=== PATIENT | female | born 1980 | race Caucasian/White ===

== ENCOUNTER → 2018-11-15 13:21 | Outpatient (POV) | payer OTHER, SELFPAY ==
[2018-11-15 13:37] VITALS: BP 129/68; PULSE 73; RESP 18; O2SAT 98
--- NOTE | 2018-11-16 07:51 | HMH.PMCON ---
Assessment and Plan (1) Degenerative joint disease (DJD) of lumbar spine Current visit: Yes Status: Chronic Category: Medical Code(s): M47.816 - Spondylosis without myelopathy or radiculopathy, lumbar region (2) Myofascial pain syndrome Current visit: Yes Status: Chronic Category: Medical Code(s): M79.18 - Myalgia, other site - Assessment and plan all Dx Assessment and Plan for all problems:: We will start by scheduling the patient for lumbar paraspinous trigger point injections. Patient has tried and failed other modalities of treatment. Patient is continuing a home stretching program. I believe it would be beneficial for the patient. I will follow-up with her after injections reassess her symptoms at that time. Dr. Garner has reviewed this note and agrees with this plan of care. This note was dictated using voice recognition software and may contain errors or omissions HPI - Data of Consult Consult date: 11/15/18 Requesting Physician: Yarelis Garcia APRN Primary Care Provider: Emmanuel Mar - Consult Narrative Reason for consult: Back pain History of present illness: Ms. Quevedo is a 38 year old female who presents today for consultation in regards to her back pain. Patient has increased pain with standing and walking she has decreased pain with rest and heating pad. Patient states is mostly in her lower back. Patient states is very focal. She rates her pain a 5 out of 10. Patient has tried and failed physical therapy. She is also on medications. Patient is currently on a Suboxone treatment clinic. Patient has a MRI with mild degeneration and mild facet arthropathy. On palpation patient does have notable trigger points lumbar paraspinous. CC: Yarelis Garcia APRN [facility] History I have reviewed the patient's past medical history: Yes Medical History: Reports:: Hyperlipidemia Other Surgeries: Yes: Tubal Ligation, Other (WISDOM TEETH, R ANKLE REPAIR) Amputation: No Fractures: Yes - *Social History Smoking Status: Never smoker Alcohol Intake: never Substance Use Type: prescription drug Last Used Substance: unknown *Occupational Status:: other Housing: house Household Members: other *Travel in the last 8 weeks: None - Psychiatric History Expresses thoughts of harming self/others: None Suicide Plan Description: No Plan Family Hx:: Unable to obtain Review of Systems - Review of Systems ROS General: no recent weight change, no fever, no sleep disturbances Respiratory: no cough, no shortness of air, no recurring pulmonary infections Cardiovascular/Peripheral Vascular: No chest pain, No palpitations, no edema, no shortness of breath. Gastrointestinal: no incontinence, normal bowel movements reported Genitourinary: no incontinence Musculoskeletal: Back pain myofascial pain Psychiatric: normal mood/ affect Neurological: [denies weakness in extremities], [denies balance issues] Meds Home Medications Medication Instructions Recorded Confirmed Type Atenolol [Atenolol 100mg Tab] 100 mg PO DAILY 11/15/18 11/15/18 History Buprenorphine HCl/Naloxone HCl 1 tab PO DAILY 11/15/18 11/15/18 History [Buprenorphin-Naloxon 8-2 mg Sl] Doxepin HCl [Sinequan 10mg capsule] 10 mg PO DAILY 11/15/18 11/15/18 History Omeprazole [Omeprazole 40mg 40 mg PO DAILY 11/15/18 11/15/18 History Capsule] Topiramate 50 mg PO BID 11/15/18 11/15/18 History Objective Vital signs: Pulse Resp BP Pulse Ox 73 18 129/68 98 11/15/18 13:37 11/15/18 13:37 11/15/18 13:37 11/15/18 13:37 Narrative: Physical Exam General: Alert and oriented x3, no acute distress, pleasant and cooperative, [on room air] Lungs: Resps E/U, Symmetrical chest expansion, Eyes: PERRL Musculoskeletal: Flexion and extension of lumbar spine somewhat guarded secondary to pain, deep tendon reflexes normal, strength in upper and lower extremities [5/5], no gait noted, palpable trigger p
--- NOTE | 2018-11-16 07:55 | P.CONS_ITS ---
Assessment and Plan (1) Degenerative joint disease (DJD) of lumbar spine Current visit: Yes Status: Chronic Category: Medical Code(s): M47.816 - Spondylosis without myelopathy or radiculopathy, lumbar region (2) Myofascial pain syndrome Current visit: Yes Status: Chronic Category: Medical Code(s): M79.18 - Myalgia, other site - Assessment and plan all Dx Assessment and Plan for all problems:: We will start by scheduling the patient for lumbar paraspinous trigger point injections. Patient has tried and failed other modalities of treatment. Patient is continuing a home stretching program. I believe it would be beneficial for the patient. I will follow-up with her after injections reassess her symptoms at that time. Dr. Garner has reviewed this note and agrees with this plan of care. This note was dictated using voice recognition software and may contain errors or omissions HPI - Data of Consult Consult date: 11/15/18 Requesting Physician: Yarelis Garcia APRN Primary Care Provider: Emmanuel Mar - Consult Narrative Reason for consult: Back pain History of present illness: Ms. Quevedo is a 38 year old female who presents today for consultation in regards to her back pain. Patient has increased pain with standing and walking she has decreased pain with rest and heating pad. Patient states is mostly in her lower back. Patient states is very focal. She rates her pain a 5 out of 10. Patient has tried and failed physical therapy. She is also on medications. Patient is currently on a Suboxone treatment clinic. Patient has a MRI with mild degeneration and mild facet arthropathy. On palpation patient does have notable trigger points lumbar paraspinous. CC: Yarelis Garcia APRN [facility] History I have reviewed the patient's past medical history: Yes Medical History: Reports:: Hyperlipidemia Other Surgeries: Yes: Tubal Ligation, Other (WISDOM TEETH, R ANKLE REPAIR) Amputation: No Fractures: Yes - *Social History Smoking Status: Never smoker Alcohol Intake: never Substance Use Type: prescription drug Last Used Substance: unknown *Occupational Status:: other Housing: house Household Members: other *Travel in the last 8 weeks: None - Psychiatric History Expresses thoughts of harming self/others: None Suicide Plan Description: No Plan Family Hx:: Unable to obtain Review of Systems - Review of Systems ROS General: no recent weight change, no fever, no sleep disturbances Respiratory: no cough, no shortness of air, no recurring pulmonary infections Cardiovascular/Peripheral Vascular: No chest pain, No palpitations, no edema, no shortness of breath. Gastrointestinal: no incontinence, normal bowel movements reported Genitourinary: no incontinence Musculoskeletal: Back pain myofascial pain Psychiatric: normal mood/ affect Neurological: [denies weakness in extremities], [denies balance issues] Meds Home Medications Medication Instructions Recorded Confirmed Type Atenolol [Atenolol 100mg Tab] 100 mg PO DAILY 11/15/18 11/15/18 History Buprenorphine HCl/Naloxone HCl 1 tab PO DAILY 11/15/18 11/15/18 History [Buprenorphin-Naloxon 8-2 mg Sl] Doxepin HCl [Sinequan 10mg capsule] 10 mg PO DAILY 11/15/18 11/15/18 History Omeprazole [Omeprazole 40mg 40 mg PO DAILY 11/15/18 11/15/18 History Capsule] Topiramate 50 mg PO BID 11/15/18 11/15/18 History Objective Vital s
== END ==
PROVIDERS: PCP Family Medicine; Visit Provider Clinical Nurse Specialist Family Health
DX: M47.816 Spondylosis without myelopathy or radiculopathy, lumbar region (principal); M79.18 Myalgia, other site
CPT/HCPCS: 99202

== ENCOUNTER → 2018-12-21 09:41 | Outpatient (POV) | payer OTHER, SELFPAY ==
[2018-12-21 09:45] VITALS: BP 154/52; PULSE 87; RESP 18; O2SAT 99; BMI 45.1
--- NOTE | 2018-12-21 10:21 | HMH.PAINSOAP ---
[facility] Pain Management SOAP Note Subjective:: Is a pleasant 38-year-old white female who presents today for follow-up after trigger point injections. Patient rates her pain a 0 out of 10 and states she is doing extremely well. She would like to follow-up as needed. ROS General: no recent weight change, no fever, no sleep disturbances Respiratory: no cough, no shortness of air, no recurring pulmonary infections Cardiovascular/Peripheral Vascular: No chest pain, No palpitations, no edema, no shortness of breath. Gastrointestinal: no incontinence, normal bowel movements reported Genitourinary: no incontinence Musculoskeletal: Myofascial pain at times Psychiatric: normal mood/ affect Neurological: [denies weakness in extremities], [denies balance issues] Objective:: Physical Exam General: Alert and oriented x3, no acute distress, pleasant and cooperative, [on room air] Lungs: Resps E/U, Symmetrical chest expansion, Eyes: PERRL Musculoskeletal: Flexion and extension of lumbar spine somewhat guarded secondary to pain, deep tendon reflexes normal, strength in upper and lower extremities [5/5], slightly antalgic gait noted Neurological: speech clear, acid conditioning worker equal, no gross sensory deficits Assessment:: Myofascial pain syndrome, degenerative disc disease lumbar spine Plan:: Patient will call us if she needs us. Patient states she overall she is doing well. Dr. Garner has reviewed this note and agrees with this plan of care. This note was dictated using voice recognition software and may contain errors or omissions
--- NOTE | 2018-12-21 10:24 | P.CONS_ITS ---
[facility] Pain Management SOAP Note Subjective:: Is a pleasant 38-year-old white female who presents today for follow-up after trigger point injections. Patient rates her pain a 0 out of 10 and states she is doing extremely well. She would like to follow-up as needed. ROS General: no recent weight change, no fever, no sleep disturbances Respiratory: no cough, no shortness of air, no recurring pulmonary infections Cardiovascular/Peripheral Vascular: No chest pain, No palpitations, no edema, no shortness of breath. Gastrointestinal: no incontinence, normal bowel movements reported Genitourinary: no incontinence Musculoskeletal: Myofascial pain at times Psychiatric: normal mood/ affect Neurological: [denies weakness in extremities], [denies balance issues] Objective:: Physical Exam General: Alert and oriented x3, no acute distress, pleasant and cooperative, [on room air] Lungs: Resps E/U, Symmetrical chest expansion, Eyes: PERRL Musculoskeletal: Flexion and extension of lumbar spine somewhat guarded secondary to pain, deep tendon reflexes normal, strength in upper and lower extremities [5/5], slightly antalgic gait noted Neurological: speech clear, clerk funeral detail equal, no gross sensory deficits Assessment:: Myofascial pain syndrome, degenerative disc disease lumbar spine Plan:: Patient will call us if she needs us. Patient states she overall she is doing well. Dr. Garner has reviewed this note and agrees with this plan of care. This note was dictated using voice recognition software and may contain errors or omissions
== END ==
PROVIDERS: Visit Provider Clinical Nurse Specialist Family Health
DX: M79.18 Myalgia, other site (principal); M51.36 Other intervertebral disc degeneration, lumbar region
CPT/HCPCS: 99212

== ENCOUNTER → 2020-01-02 10:21 | Outpatient (POV) | payer MEDICAID, SELFPAY ==
[2020-01-02 10:43] VITALS: BP 169/75; PULSE 79; RESP 18; TEMP 36.6; O2SAT 99; BMI 45.5
--- NOTE | 2020-01-03 08:16 | P.CONS_ITS ---
[facility] Pain Management SOAP Note Subjective:: Patient is a pleasant 39-year-old white female who we have not seen for quite some time. At her last visit she is following up after trigger point injections and was doing extremely well. She stated that she did well for several months until she was put on a new ADD medication. 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 She has constant numbness and tingling all over her body. She is had a nerve study showing demyelination. She rates her pain a 4 out of 10. She is learning to re-walk. She is on physical therapy and Occupational Therapy she is still being seen by neurologist. Patient is here to discuss options in regards to her pain management. She is on gabapentin 800 mg 4 times a day. ROS General: no recent weight change, no fever, no sleep disturbances Respiratory: no cough, no shortness of air, no recurring pulmonary infections Cardiovascular/Peripheral Vascular: No chest pain, No palpitations, no edema, no shortness of breath. Gastrointestinal: no new onset incontinence, normal bowel movements reported Genitourinary: no new onset incontinence Musculoskeletal: Generalized pain Psychiatric: normal mood/ affect, Neurological: Weakness in bilateral lower extremities numbness and tingling in all extremities Objective:: Physical Exam General: Alert and oriented x3, no acute distress, pleasant and cooperative, [on room air] Lungs: Resps E/U, Symmetrical chest expansion, Eyes: PERRL Musculoskeletal: Flexion and extension of lumbar spine somewhat guarded secondary to pain, deep tendon reflexes normal, strength in upper and lower extremities [5/5], [abnormal gait noted] Neurological: speech clear, medicaid billing specialist equal, decreased sensation to palpation bilateral lower extremities Assessment:: Chronic inflammatory demyelination polyneuropathy, myofascial pain Plan:: Patient and I discussed doing some trigger points in her low back. She is given see her neurologist prior to this to get approval. Patient I did also talk about supplementation of B vitamins. I discussed with her to talk in regards to this to her neurologist. I will follow-up with her and do trigger point injections in 2 weeks reassess her symptoms at that time she is been instructed to call the office if she has any issues prior to her next appointment. Dr. Garner has reviewed this note and agrees with this plan of care. This note was dictated using voice recognition software and may contain errors or omissions [facility] History I have reviewed the patient's past medical history: Yes Medical History: Reports:: Gastroesophageal Reflux Disease(GERD), Hyperlipidemia, Hypertension Denies:: Cancer, Diabetes Mellitus Type 1, Diabetes Mellitus Type 2, MRSA, Seizures *Have you ever received a pneumonia vaccine?: Yes *Have you received a flu vaccine this season?: Yes Other Medical History: Reports: Other (CIDP). Denies: Blood Transfusion Reaction Other Surgeries: Yes: Tubal Ligation, Other Amputation: No Fractures: Yes - *Social History Smoking Status: Former smoker Alcohol Intake: never *Occupational Status:: other Housing: house Household Members: other *Travel in the last 8 weeks: None Family Hx:: Unable to obtain
== END ==
PROVIDERS: PCP Nurse Practitioner Family; Visit Provider Clinical Nurse Specialist Family Health
DX: G61.81 Chronic inflammatory demyelinating polyneuritis (principal); M79.18 Myalgia, other site
CPT/HCPCS: 99212

== ENCOUNTER 2020-01-17 14:42 | Day surgery (SDC) | payer MEDICAID, SELFPAY ==
[2020-01-17 14:49] VITALS: BP 132/79; PULSE 89; RESP 18; TEMP 36.8; O2SAT 98; BMI 26.9
[2020-01-17 15:16] VITALS: BP 158/78; PULSE 85; RESP 18; O2SAT 98
[2020-01-17 15:18] VITALS: BP 145/78; PULSE 89; RESP 18; O2SAT 98
--- NOTE | 2020-01-17 15:20 | P.PCN_ITS ---
- Procedure Date: 01/17/20 Time: 15:20 Anesthesiologist:: Yarelis Garcia APRN Complications:: None Pre-procedure Diagnosis:: Myofascial pain syndrome Post-procedure Diagnosis:: Same Indications for Procedure:: Patient is a pleasant 39-year-old white female who presents today from myofascial pain and trigger points. Patient has done well with these in the past. She is had several months worth of issues secondary to an ADD medication that she took. She was hospitalized and went to occupational therapy and was also put in rehabilitation. Patient was tested for CIDP which came back negative. She is awaiting a specialist. Patient rates her pain a 5 out of 10.. physical Exam General: Alert and oriented x3, no acute distress, pleasant and cooperative, [on room air] Lungs: Resps E/U, Symmetrical chest expansion, Eyes: PERRL Musculoskeletal: Flexion and extension of lumbar and thoracic spine somewhat guarded secondary to pain, deep tendon reflexes normal, strength in upper and lower extremities [5/5], [abnormal gait noted] palpable trigger points bilateral lumbar paraspinous and thoracic paraspinous muscles Neurological: speech clear, supplier quality engineer equal, no gross sensory deficits Procedure Details:: Procedure: Informed consent was obtained and the risk and benefits of the procedure were explained to the patient. Patient was taken to the procedure room. The thoracic and lumbar paraspinous bilaterally was prepped using ChloraPrep as a cleansing solution. Trigger points were palpated and marked. Each of these trigger points were injected with 3 mL's of bupivacaine 0.25 and Depo-Medrol 10 mg. A total of 80 milligrams of Depo-Medrol was used for 8 trigger points. Bandages were placed over the injection sites. Patient tolerated the procedure well with no complications. Plan and Disposition:: I will see the patient back in 2 to 3 weeks reassess her symptoms at that time she has been instructed to call the office if she has any issues prior to her next appointment. We also try to get [facility] records for her. Dr. Garner has reviewed this note and agrees with this plan of care. This note was dictated using voice recognition software and may contain errors or omissions
[2020-01-17 15:28] VITALS: BP 143/69; PULSE 85; RESP 20; O2SAT 98
== END 2020-01-17 15:30 | disposition home or self-care (01) ==
LOC: SC.PAINP 14:43
PROVIDERS: PCP Nurse Practitioner Family; Visit Provider Clinical Nurse Specialist Family Health
DX: M79.18 Myalgia, other site (principal); Z88.8 Allergy status to other drugs, medicaments and biological substances; Z88.5 Allergy status to narcotic agent; I10 Essential (primary) hypertension; J45.909 Unspecified asthma, uncomplicated; F41.9 Anxiety disorder, unspecified; F32.9 Major depressive disorder, single episode, unspecified; M47.816 Spondylosis without myelopathy or radiculopathy, lumbar region; Z79.899 Other long term (current) drug therapy
CPT/HCPCS: 20553; J1030

== ENCOUNTER → 2020-01-30 15:13 | Outpatient (POV) | payer MEDICAID, SELFPAY ==
[2020-01-30 15:49] VITALS: BP 125/85; PULSE 77; RESP 18; O2SAT 98; BMI 44.6
--- NOTE | 2020-01-30 16:04 | P.CONS_ITS ---
[facility] Pain Management SOAP Note Subjective:: Patient is a pleasant 39-year-old white female who presents today for follow-up after thoracic and lumbar paraspinal trigger point injections. Patient is interested in repeating this given the efficacy. She rates her pain today at 3 out of 10. She is gotten 80% relief of her symptomology with her injections. We also discussed utilizing a TENS unit we will write her a prescription for that today as well. ROS General: no recent weight change, no fever, no sleep disturbances Respiratory: no cough, no shortness of air, no recurring pulmonary infections Cardiovascular/Peripheral Vascular: No chest pain, No palpitations, no edema, no shortness of breath. Gastrointestinal: no new onset incontinence, normal bowel movements reported Genitourinary: no new onset incontinence Musculoskeletal: Myofascial pain Psychiatric: normal mood/ affect Neurological: [denies new onset weakness in extremities], [denies new onset balance issues] Objective:: Physical Exam General: Alert and oriented x3, no acute distress, pleasant and cooperative, [on room air] Lungs: Resps E/U, Symmetrical chest expansion, Eyes: PERRL Musculoskeletal: Flexion and extension of lumbar spine somewhat guarded secondary to pain, deep tendon reflexes normal, strength in upper and lower extremities [5/5], [abnormal gait noted] Neurological: speech clear, concept artist equal, no gross sensory deficits Assessment:: Myofascial pain syndrome Plan:: We will get her approved for lumbar paraspinal trigger point injections. Bilaterally I will follow-up with her after this reassess her symptoms at that time she has been instructed to call the office if she has any issues prior to her next appointment. Dr. Garner has reviewed this note and agrees with this plan of care. This note was dictated using voice recognition software and may c ontain errors or omissions [facility] History I have reviewed the patient's past medical history: Yes Medical History: Reports:: Gastroesophageal Reflux Disease(GERD), Hyperlipidemia, Hypertension Denies:: Cancer, Diabetes Mellitus Type 1, Diabetes Mellitus Type 2, MRSA, Seizures *Have you ever received a pneumonia vaccine?: Yes *Have you received a flu vaccine this season?: Yes Other Medical History: Reports: Other (CIDP). Denies: Blood Transfusion Reaction Other Surgeries: Yes: Tubal Ligation, Other Amputation: No Fractures: Yes - *Social History Smoking Status: Former smoker Alcohol Intake: never *Occupational Status:: other Housing: house Household Members: other *Travel in the last 8 weeks: None Family Hx:: Unable to obtain
== END ==
PROVIDERS: PCP Nurse Practitioner Family; Visit Provider Clinical Nurse Specialist Family Health
DX: M79.18 Myalgia, other site (principal)
CPT/HCPCS: 99212

== ENCOUNTER 2020-02-24 09:46 | Day surgery (SDC) | payer MEDICAID, SELFPAY ==
[2020-02-24 10:13] VITALS: BP 139/87; PULSE 73; RESP 18; TEMP 36.7; O2SAT 96; BMI 30.9
[2020-02-24 11:04] VITALS: BP 140/87; PULSE 89; RESP 18
[2020-02-24 11:05] VITALS: BP 142/88; PULSE 79; RESP 18; O2SAT 98
--- NOTE | 2020-02-24 11:11 | HMH.PMPROC ---
- Procedure Date: 02/24/20 Time: 11:11 Anesthesiologist:: Urban Garner MD Complications:: None Pre-procedure Diagnosis:: Myofascial pain in the low back with lumbago and degenerative disc disease of lumbar spine Post-procedure Diagnosis:: Same Indications for Procedure:: This patient is a pleasant 39-year-old white female who we are treating for mid back pain and low back pain with myofascial pain and trigger points. She is done well with trigger point injections to the thoracic paraspinous muscles and lumbar paraspinous muscles in the past. She does have some increasing low back pain. We will do repeat trigger point injections to the lumbar paraspinous muscles today. Procedure Details:: Trigger point injections x8 to bilateral lumbar paraspinous muscles. Informed consent was obtained the risk and benefits of the procedure were explained to the patient. Patient was taken to the procedure room. The back was prepped using ChloraPrep. Trigger points were palpated marked. Each of these trigger points were injected with bupivacaine 0.25% 3 mils and Depo-Medrol 10 mg. A total of 8 trigger points, 4 in each side were injected using 80 mg Depo-Medrol. Patient tolerated the procedure well with no complications. Plan and Disposition:: We will follow-up with her in 2 weeks. Will reevaluate symptoms at that time.
[2020-02-24 11:20] VITALS: BP 133/86; PULSE 67; RESP 18; O2SAT 96
== END 2020-02-24 11:21 | disposition home or self-care (01) ==
LOC: SC.PAINP 09:47
PROVIDERS: PCP Nurse Practitioner Family; Visit Provider Anesthesiology
DX: M79.18 Myalgia, other site (principal); M51.16 Intervertebral disc disorders with radiculopathy, lumbar region; I10 Essential (primary) hypertension; K21.9 Gastro-esophageal reflux disease without esophagitis; Z88.5 Allergy status to narcotic agent; Z88.8 Allergy status to other drugs, medicaments and biological substances; J45.909 Unspecified asthma, uncomplicated; F41.9 Anxiety disorder, unspecified; F32.9 Major depressive disorder, single episode, unspecified; Z79.899 Other long term (current) drug therapy
CPT/HCPCS: 20552; J1030

== ENCOUNTER 2020-06-16 16:25 | Emergency (ER) | payer MEDICAID, SELFPAY ==
[2020-06-16 17:00] VITALS: BP 132/72; PULSE 75; RESP 20; TEMP 36.7; O2SAT 100; BMI 41.6
--- NOTE | 2020-06-16 17:04 | HMH.EDUTC ---
[facility] [place] Impression: Exposure to COVID-19 virus, Diarrhea Disposition: Home, Self-Care Condition on Discharge: Good Instructions: Diarrhea, Preventing the Spread of Coronavirus Discharge Instructions, DI for Viral Syndrome Additional Instructions: *Monitor Temp, Over the counter Motrin or Tylenol as directed/as needed Tylenol every 4 hours and Motrin every 6 hours (as long as your family doctor has told you that you can take it) for fever or pain. and straight to ER if unable to lower temp less than 101.0 after medication given *Warm salt water gargles may help to soothe the throat *Throat Lozenges *Warm fluids like tea with honey may help to soothe the throat *Sleep elevated *Humidifier/Vaporizer *Flonase 2 sprays in each nostril daily but be aware that it may take 2-3 days before you notice improvement Follow up IMMEDIATELY for new or worsening symptoms or no Noticeable improvement over the next 48-72 hours. 911 for difficulty breathing or swallowing You was tested for today for COVID19 your test result should be back in the next 24-48 hours, you may call to the [facility] tomorrow to see if your test results are back and the result [phone] You was given a handout with instructions for Self Quarantine and Self isolation for while you wait on test results and what to do if they are positive If you are positive the Health Dept will be contacting you also Referrals: Suzanne Coles PA [Primary Care Provider] - As needed Forms: Work/School Release Time of Disposition: 17:07 Medical Decision Making - Taurus Inquiry Pt receiving controlled substance: No Taurus was queried for this patient: No Vital Signs: 06/16/20 17:00 Temperature 98.0 F Temperature Source Oral Pulse Rate [Radial] 75 Respiratory Rate 20 Blood Pressure [Right Arm] 132/72 Blood Pressure Mean [Right Arm] 92 Blood Pressure Source [Right Arm] Automatic Cuff Blood Pressure Position [Right Arm] Sitting 02 Sat by Pulse Oximetry 100 Oxygen Delivery Method Room Air Orders (Tests/Meds): ORDERS Category Date Time Status Covid-19 Nasal PCR ([facility]) Routine Lab 06/16/20 16:40 [place] [facility] [place] - General Stated complaint: sore throat nausea diarhea Time Seen by Provider: 11/14/20 17:04 Mode of Arrival: Ambulatory Source of Information: Patient Limitations: No Limitations Description of Symptoms (Recalled from Triage Doc. by RN): COVID TEST HEENT Symptoms (Recalled from RN notes): No Resp Symptoms (Recalled from RN notes): No Skin Symptoms (Recalled from RN notes): No MS Symptoms (Recalled from RN notes): No Functional Status (Recalled from RN notes): WNL - History of Present Illness Provider Complaint: Patient states that she was notified by her daughters recovery coach that [facility] and she was exposed also States that she had a scratchy throat, drainage and diarrhea States that she has been in quarantine and wanted to get tested - Related Data Home Medications Medication Instructions Recorded Confirmed Buprenorphine HCl/Naloxone HCl 1 tab PO DAILY 11/15/18 02/24/20 [Buprenorphin-Naloxon 8-2 mg Sl] Doxepin HCl [Sinequan 10mg capsule] 10 mg PO DAILY 11/15/18 02/24/20 Omeprazole [Omeprazole 40mg 40 mg PO DAILY 11/15/18 02/24/20 Capsule] atenoloL [Atenolol 100mg Tab] 100 mg PO DAILY 11/15/18 02/24/20 dextroamphetamine-amphetamine ER 30 mg PO DAILY 12/21/19 02/24/20 30 mg 24hr capsule,extend release diclofenac sodium 75 mg 75 mg PO BID 12/21/19 02/24/20 tablet,delayed release furosemide 20 mg tablet 20 mg PO DAILY 12/21/19 02/24/20 gabapentin 800 mg tablet 800 mg PO TID 12/21/19 02/24/20 ibuprofen 800 mg tablet 800 mg PO TID 12/21/19 02/24/20 loratadine 10 mg tablet 10 mg PO DAILY 12/21/19 02/24/20 nortriptyline 10 mg capsule 10 mg PO QHS 12/21/19 02/24/20 potassium chloride 8 mEq 8 meq PO DAILY 12/21/19 02/24/20 capsule,extended release pramoxine 1 % lotion 1 ap
[2020-06-16 17:11] VITALS: BP 132/72; PULSE 75; RESP 20; TEMP 36.7; O2SAT 100
== END 2020-06-16 17:27 | disposition home or self-care (01) ==
PROVIDERS: Emergency Provider Nurse Practitioner; PCP Nurse Practitioner Family
DX: Z20.828 Contact with and (suspected) exposure to other viral communicable diseases (principal); I10 Essential (primary) hypertension; K21.9 Gastro-esophageal reflux disease without esophagitis; E78.5 Hyperlipidemia, unspecified; Z79.899 Other long term (current) drug therapy
CPT/HCPCS: 99201; U0003

== ENCOUNTER 2021-04-01 15:01 | Emergency (ER) | payer MEDICAID, SELFPAY ==
[2021-04-01 15:02] VITALS: BP 153/75; PULSE 89; RESP 18; TEMP 37.2; O2SAT 100; BMI 35.0
--- NOTE | 2021-04-01 15:48 | XR_ITS ---
PROCEDURE: XR KUB CLINICAL INDICATION: LUQ abd pain COMPARISON: No exams were available for comparison FINDINGS: Nonspecific bowel gas pattern. No evidence of intestinal obstruction. There are 3 opacities overlying the right mid abdominal region possibly due to undigested medication or soft tissue calcifications. No acute bony anomalies. IMPRESSION: No acute findings. Dictated by: Devin Snow MD 04/01/2021 16:20 Devin Snow MD in [place] 04/01/2021 16:20
--- NOTE | 2021-04-01 15:48 | XR_ITS ---
PROCEDURE: XR CHEST PORTABLE CLINICAL HISTORY: Chest pain, covid concerns COMPARISON: No exams were available for comparison FINDINGS: The cardiomediastinal silhouette and pulmonary vascularity are within normal limits. The lungs are clear without infiltrates, suspicious nodules, or pleural effusions. No acute bony abnormalities. IMPRESSION: No acute findings. Dictated by: Devin Snow MD 04/01/2021 16:19 Devin Snow MD in [place] 04/01/2021 16:19
--- NOTE | 2021-04-01 15:50 | HMH.EDGENADL ---
ED Disposition Clinical Impression: Abdominal pain affecting Disposition: Home, Self-Care Condition on Discharge: Good Instructions: DI for Acute Abdominal Pain Referrals: Suzanne Coles PA [Primary Care Provider] - - Critical Care Critical Care Time: No Attestation: On 04/01/21, the high probability of a clinically significant, sudden or life threatening deterioration of the following system(s) required my full and direct attention, intervention and personal management. The time I documented below is in addition to time spent performing reported procedures but includes the following listed in this critical care notation. Medical Decision Making - Medical Records Medical records reviewed: Yes: I reviewed the patient's medical records. - Taurus Inquiry Pt receiving controlled substance: No Vital Signs: 04/01/21 15:02 04/01/21 19:29 Temperature 99.0 F 98.7 F Temperature Source Oral Pulse Rate 81 Pulse Rate [Left Radial] 89 Respiratory Rate 18 18 Blood Pressure 141/72 H Blood Pressure [Right Arm] 153/75 H Blood Pressure Mean [Right Arm] 101 Blood Pressure Source [Right Arm] Automatic Cuff Blood Pressure Position [Right Arm] Sitting 02 Sat by Pulse Oximetry 100 Oxygen Delivery Method Room Air - Lab Data Lab Results 04/01/21 15:53: SARS-CoV-2 (PCR) Not detected, Influenza A Untype (PCR) Not detected, Influenza Type B (PCR) Not detected 04/01/21 16:00: WBC 12.5 H, RBC 4.16 L, Hgb 12.6, Hct 38.4, MCV 92.3, MCH 30.2, MCHC 32.7, RDW 14.1, Plt Count 257, MPV 9.2, Neut % (Auto) 71.1, Lymph % (Auto) 21.6, [place] % (Auto) 3.3, Eos % (Auto) 3.2, Baso % (Auto) 0.7, Neut # (Auto) 8.9 H, Lymph # (Auto) 2.7, [place] # (Auto) 0.4, Eos # (Auto) 0.4, Baso # (Auto) 0.1 04/01/21 16:00: Sodium 137, Potassium 5.0, Chloride 108 H, Carbon Dioxide 19 L, Anion Gap 15.0, BUN 12, Creatinine 0.60, Estimated Creat Clear 178, Estimated GFR 111, Est GFR ( Amer) 135, Glucose 108 H, Calcium 9.3, Total Bilirubin 1.0, AST 48 H, ALT 15, Alkaline Phosphatase 122, Total Protein 8.0, Albumin 4.2, Globulin 3.8 H, Albumin/Globulin Ratio 1.1, Lipase 61 04/01/21 17:00: Urine Color Straw, Urine Appearance Sl cloudy, Urine pH 6.0, Ur Specific Chunky 1.010, Urine Protein Negative, Urine Glucose (UA) Negative, Urine Ketones Negative, Urine Blood Negative, Urine Nitrate Negative, Urine Bilirubin Negative, Urine Urobilinogen 0.2, Ur Leukocyte Esterase 2+ A, Urine WBC 5-10, Ur Squamous Epith Cells 5-10, Urine Bacteria 2+ Result diagrams: 04/01/21 16:00 04/01/21 16:00 Orders (Tests/Meds): ED MEDICATIONS Discontinued Medications Generic Name Dose Route Start Last Admin Trade Name Freq PRN Reason Stop Dose Admin Ketorolac Tromethamine 30 mg 04/01/21 16:48 04/01/21 16:52 Ketorolac 30mg/Ml Vial IV 04/01/21 16:49 30 mg ONCE ONE Administration Morphine Sulfate 4 mg 04/01/21 15:47 04/01/21 16:52 Morphine 4mg/Ml Syringe IV 04/01/21 15:48 Not Given ONCE ONE Ondansetron HCl 4 mg 04/01/21 15:49 04/01/21 16:52 Ondansetron 4mg/2ml Vial IV 04/01/21 15:50 4 mg ONCE ONE Administration ORDERS Category Date Time Status Urine Culture Stat Micro 04/01/21 17:00 Received Medical Decision Narrative: Patient to the ED today for further evaluation of left upper quadrant abdominal pain which started acutely while in the waiting room. Patient was originally here for COVID-19 testing. Differential diagnosis includes atypical viral infection, pneumonia, constipation, gas pain, pulmonary embolism, abdominal surgical complication. Will obtain a KUB, chest x-ray, CBC, CMP, lipase, urine. Will administer 4 mg of IV morphine, 4 mg of IV Zofran. Will reevaluate. Patient is allergic to morphine, will administer 30 mg of IV Toradol, Zofran for symptomatic improvement. X-ray of the abdomen obtained with no evidence of obvious pathology, patient's chest x-ray without evidence of pneumonia. Patient is well-appearing
--- NOTE | 2021-04-01 15:57 | PC.NURSE ---
Attempted twice for an IV without success
[2021-04-01 16:16] LABS: Basophils # 0.1 K/mm3 (0-0.2); Basophils % 0.7 % (0.1-2.0); Eosinophils # 0.4 K/mm3 (0.0-0.4); Eosinophils % 3.2 % (0.1-12.0); Hematocrit 38.4 % (37.0-47.0); Hemoglobin 12.6 g/dL (12.2-16.2); Lymphocytes # 2.7 K/mm3 (0.7-4.5); Lymphocytes % 21.6 % (10-50); Mean Corpuscular HGB Conc 32.7 g/dL (31.8-35.4); Mean Corpuscular Hemoglobin 30.2 pg (27.0-31.2); Mean Corpuscular Volume 92.3 fl (81-99); Mean Platelet Volume 9.2 fl (7.4-10.4); Monocytes # 0.4 K/mm3 (0.1-1.0); Monocytes % 3.3 % (1.7-9.3); Neutrophils # 8.9 K/mm3 (1.8-7.8); Neutrophils % 71.1 % (37.0-80.0); Platelet Count 257 K/mm3 (142-424); Red Blood Count 4.16 M/mm3 (4.20-5.40); Red Cell Distribution Width 14.1 % (11.5-17.5); White Blood Count 12.5 K/mm3 (4.8-10.8)
[2021-04-01 16:30] LABS: Coronavirus 19, PCR Not Detected (NotDetected); Influenza A, PCR Not Detected (NotDetected); Influenza B, PCR Not Detected (NotDetected)
[2021-04-01 16:42] LABS: Chloride 108 mmol/L (98-107); Sodium 137 mmol/L (136-145)
[2021-04-01 16:45] LABS: Alanine Aminotransferase 15 U/L (12-78); Albumin Level 4.2 g/dl (3.5-5.0); Albumin/Globulin Ratio 1.1 (1.1-1.8); Alkaline Phosphatase 122 U/L (38-126); Aspartate Amino Transferase 48 U/L (14-36); Blood Urea Nitrogen 12 mg/dl (7-17); Calcium 9.3 mg/dl (8.4-10.2); Carbon Dioxide 19 mmol/L (22.0-30.0); Creatinine Clearance Estimated 178 mL/min (50-200); Estimated Glomerular Filt Rate 111 ml/min (>60); GFR (African American) 135 ML/MIN (>60); Globulin 3.8 g/dL (1.3-3.2); Glucose 108 mg/dl (74-100); Lipase 61 U/L (23-300)
[2021-04-01 17:08] LABS: Microscopic, Urine URINE MICROSCOPIC (MICROSCOPIC)
[2021-04-01 17:16] LABS: Appearance,Urine SL CLOUDY (Clear); Bilirubin,Urine Negative (Negative); Blood, Urine Negative (Negative); Color,Urine STRAW (Yellow); Glucose,Urine (UA) Negative (Negative); Ketones,Urine Negative (Negative); Leukocyte Esterase,Urine 2+ (Negative); Nitrate,Urine Negative (Negative); Protein,Urine Negative (Negative); Urobilinogen,Urine 0.2 EU/dl (0.2)
[2021-04-01 17:35] LABS: Bacteria,Urine 2+ /lpf
[2021-04-01 19:29] VITALS: BP 141/72; PULSE 81; RESP 18; TEMP 37.1; O2SAT 99
== END 2021-04-01 19:39 | disposition home or self-care (01) ==
PROVIDERS: Emergency Provider Student in an Organized Health Care Education/Training Program; PCP Nurse Practitioner Family
DX: O26.899 Other specified pregnancy related conditions, unspecified trimester (principal); R10.12 Left upper quadrant pain; K21.9 Gastro-esophageal reflux disease without esophagitis; I10 Essential (primary) hypertension; E78.5 Hyperlipidemia, unspecified
CPT/HCPCS: 71045; 74018; 80053; 81001; 83690; 85025; 87086; 99283; J2405; U0003

== ENCOUNTER 2024-04-05 11:06 | Outpatient (CLI) | payer MEDICAID, SELFPAY ==
--- NOTE | 2024-04-05 11:12 | XR_ITS ---
FINAL REPORT CLINICAL HISTORY: Foot pain FINDINGS: Left foot Three views were obtained. There is no acute fracture or dislocation. There are mild degenerative changes. Mild hallux valgus deformity is identified. Note is made of calcaneal spurs. No soft tissue abnormality is identified. IMPRESSION: Degenerative changes as above. Reviewed, Interpreted and Dictated by Compa Pedraza III, MD Transcribed by Jacquelin Estrada Authenticated and [facility]
--- NOTE | 2024-04-05 11:12 | XR_ITS ---
FINAL REPORT CLINICAL HISTORY: Foot pain FINDINGS: Right foot Three views were obtained. There is no acute fracture or dislocation. There are postoperative changes in the distal tibia/fibula. Mild degenerative changes are present. Note is made of calcaneal spurs. IMPRESSION: Degenerative and postsurgical changes as above. Reviewed, Interpreted and Dictated by Compa Pedraza III, MD Transcribed by Jacquelin Estrada Authenticated and [facility]
== END 2024-04-05 23:59 | disposition home or self-care (01) ==
LOC: RAD 11:08
PROVIDERS: PCP Nurse Practitioner; Visit Provider Podiatrist
DX: M79.672 Pain in left foot (principal); M79.671 Pain in right foot; B35.1 Tinea unguium
CPT/HCPCS: 73630; 87102; 87206; 87220